=== PATIENT | female | born 1985 ===

== ENCOUNTER 2017-12-22 09:03 | Outpatient (CLI) | payer OTHER ==
[~2017-12-22] VITALS: Ht 152.4 cm; Wt 72.6 kg
== END 2017-12-22 09:15 | disposition home or self-care (01) ==
LOC: OFIC 805 09:03
DX: H61.23 Impacted cerumen, bilateral (principal); J31.0 Chronic rhinitis; J31.2 Chronic pharyngitis

== ENCOUNTER 2020-02-07 14:22 | Outpatient (CLI) | payer OTHER ==
[2020-02-07] MEDS ORDERED: ESOMEPRAZOLE MA20 MG PO (14:43)
== END 2020-02-07 15:00 | disposition home or self-care (01) ==
LOC: OFIC 805 14:22
PROVIDERS: ATTEND Otolaryngology Otology & Neurotology
DX: J02.8 Acute pharyngitis due to other specified organisms (principal); K21.9 Gastro-esophageal reflux disease without esophagitis

== ENCOUNTER 2020-07-06 13:15 | Outpatient (CLI) | payer OTHER ==
[~2020-07-06 13:15] MED LIST: ESOMEPRAZOLE MA20 MG PO
== END 2020-07-06 17:24 | disposition home or self-care (01) ==
LOC: OFIC 805 13:15
PROVIDERS: ATTEND Otolaryngology Otology & Neurotology
DX: K21.00 Gastro-esophageal reflux disease with esophagitis, without bleeding (principal); M54.2 Cervicalgia; J31.2 Chronic pharyngitis